=== PATIENT | male | born 1995 | race Caucasian/White ===

== ENCOUNTER 2018-01-08 15:31 | Emergency (ER) | payer OTHER ==
--- NOTE | 2018-01-08 16:29 | EDPHY ---
H & P Stated Complaint: R elbow/forearm/hand lac Source: Patient Exam Limitations: No limitations - Personal History Current Tetanus/Diphtheria Vaccine: Yes Current Tetanus Diphtheria and Acellular Pertussis (TDAP): Yes - Medical/Surgical History Hx Asthma: No Hx Chronic Respiratory Disease: No Hx Diabetes: No Hx Cardiac Disease: No Hx Renal Disease: No Hx Cirrhosis: No Hx Alcoholism: No Hx HIV/AIDS: No Hx Splenectomy or Spleen Trauma: No Other PMH: denies - Social History Smoking Status: Never smoked Time Seen by Provider: 01/08/18 16:27 HPI/ROS: HPI: This is a 22-year-old male who presents with Chief Complaint: R elbow/forearm/hand lac Location: Right elbow, right forearm, right hand Quality: Laceration Duration: 3 hr prior to arrival Signs and Symptoms: + bleeding, no radiation, no numbness, no weakness, no tingling, no incontinence, no decreased range of motion, no swelling, no pain, no fever Timing: Acute Severity: [id number] Context: Patient is right-hand dominant, became angry and punched his hand and right forearm through the glass door. He reports that he sustained several cuts to his right hand and right forearm. He reports that there was bleeding but stopped with direct pressure. He at 1st experience moderate, constant, nonradiating pain. He denies any pain at this time. Reports tetanus is current. Modifying Factors: Direct pressure Comment: ROS: see HPI Constitutional: No fever, no chills, no weight loss Eyes: No blurred vision Respiratory: No shortness of breath, no cough Cardiovascular: No chest pain Gastrointestinal: No nausea, no vomiting no diarrhea Genitourinary: No dysuria Extremities: No myalgias Neurologic: No weakness, no numbness Skin: No rashes Hematologic: No bruising, no bleeding MEDICAL/SURGICAL/SOCIAL HISTORY: Medical history: Generally healthy. Does not take any regular medications. Surgical history: Denies Social history: Never smoked. CONSTITUTIONAL: awake and alert, no obvious distress HEENT: Atraumatic and normocephalic. NECK: supple, no midline tenderness, flexion 45 degrees, extension 45 degrees, right and left lateral flexion 45 degrees. No meningismus. Cardiovascular: Normal S1/S2, regular rate, regular rhythm, without murmur rub or gallop. PULMONARY/CHEST: Symmetrical and nontender. no crepitus. Clear to auscultation bilaterally. Good air movement. No accessory muscle usage. ABDOMEN: Soft, nondistended, nontender, no ecchymosis. PELVIC: no pain with rocking; bilateral hips flexion 125 degrees, extension 30 degrees, with no pain internal rotation and no pain external rotation. BACK: No midline tenderness, no paraspinous spasm, deep tendon reflexes 2/2, no pain with straight leg raise, No foot drop. Achilles reflexes are equal bilaterally. Able to walk on heels and toes without difficulty. EXTREMITIES: 2/2 pulses, strength 5/5, right hand palmar aspect shows superficial, linear laceration. Left forearm shows 2, linear, simple laceration. No active bleeding. Right WRIST: Extension to 70, flexion to 80 , radial deviation to 20 degree, ulnar deviation to 30, no scaphoid tenderness , no tenderness over ulnar styloid, no tenderness over radial styloid. Right ELBOW: Full extension to 180, flexion to 150, no tenderness over medial epicondyle, no tenderness over lateral epicondyle, no effusion. DIP/PIP/MCP flexion/extension intact with good light touch sensation. no deformities, no clubbing, no cyanosis or edema. NEUROLOGICAL: no focal neuro deficits. GCS 15. Light touch sensation intact. SKIN: Warm and dry, no erythema. no rash. Good capillary refill. (Marlene Ibrahim) Constitutional: Initial Vital Signs Temperature (C) 36.5 C 01/08/18 15:34 Heart Rate 57 L 01/08/18 15:34 Respiratory Rate 16 01/08/18 15:34 Blood Pressure 157/83 H 01/08/18 15:34 O2 Sat (%) 99 01/08/18 15:34 O2 Delivery Mode Room Air Allergies/Adverse Reactions: No Known Allergies Allergy (Unverified 01/08/18 15:34) Home Medications: Medication Instructions Recorded NO HOME MEDS 08/13/10 Medical Decision Making Procedures: Procedure: Laceration repair. I was requested by MARGE Ibrahim to perform wound closure I explained the indications, risks and benefits for both laceration repair and anesthetic administration. Verbal consent was obtained from the patient . The laceration on the right forearm and right thenar eminence was anesthetized using 0.5% bupivicaine with epinephrine digital nerve block. After anesthetic administered the patient was observed for a period of time and had no apparent adverse effects. The wound was cleaned, prepped, draped in normal sterile fashion and explored to its base. No foreign body seen, no foreign bodies palpated. There were no deep structures involved. No tendon injury was identified. The wounds were closed with a total of 11 simple interrupted 5 0 Prolene sutures. I do not identify any subcutaneous foreign bodies. There were small piece of glass on the skin that I removed.. The wound repair was complex. The procedure was performed by myself. Patient has been informed that scarring will occur, although efforts have been made to minimize this. I will obtain repeat x-ray as the prior x-ray was obtained prior to wound irrigation and radiopaque foreign bodies were noted. Post irrigation no radiopaque foreign bodies are seen. Procedure: Splint A Velcro thumb spica splint was applied by ER carpet cleaning technician in order to protect the laceration on the thenar eminence. After application of the splint I returned and re-examined the patient. The splint was adequately immobilizing the joint and distal to the splint the patient's circulation and sensation were intact. Patient shows no signs of compartment syndrome. Was given orthopedic precautions. (David Amador) ED Course/Re-evaluation: Right hand x-ray, right forearm x-ray ordered Tetanus is current. Local anesthesia provided with 10 mL of 0.5 % Bupivacaine with epinephrine. 1700: End of shift. Signed over to MARGE Mace pending laceration repair and x- ray results. No signs of neurovascular compromise/tenting of skin/compartment syndrome/ extremities and joints examined above and below area of concern and are neurovascularly intact. This patient was seen under the supervision of my secondary supervising physician. I evaluated care for this patient independently. Discussed this patient with Dr. Bhakta who did not see the patient. (Marlene Ibrahim) Differential Diagnosis: Differential diagnosis includes but is not limited to boxer's fracture, radial fracture, ulnar fracture, laceration, tendon injury, nerve injury. (Marlene Ibrahim) Other Provider: The patient was evaluated and managed by the Physician Fire Sprinkler Apparatus Inspector. My co- signature indicates that I have reviewed this chart and I agree with the findings and plan of care as documented. I am the secondary supervising physician. (Lena hBakta) Departure - Departure Disposition: Home, Routine, Self-Care Clinical Impression: Laceration of left hand, Laceration of left forearm without complication Condition: Good Instructions: Care For Your Stitches (ED), Laceration (ED) Additional Instructions: Keep the dressing dry and in place for 48 hours. After 48 hours, you may remove the dressing; wash the site daily with mild soap and water; then pat dry. Take Tylenol 650 mg every 4 hours and/or Ibuprofen 600 mg every 8 hours with food as needed for pain. Apply ice for 30 minutes at a time; 2-3 times per day for the next 1-2 days. Wound Care Follow-Up: Removal of sutures in [10] days. Suture removal is complimentary in uncomplicated cases. Infection or abnormal findings would require reevaluation by the MD. In that case, you may be billed. Return to the ER immediately if you experience redness, red streaks, have fevers /chills, flu like symptoms, limited range of motion, or any other symptoms that concern you. Referrals: NONE *PRIMARY CARE P,. [Primary Care Provider] - As per Instructions
[2018-01-08 18:33] VITALS: BP 148/80
== END 2018-01-08 18:33 | disposition home or self-care (01) ==
DX: S61.412A Laceration without foreign body of left hand, initial encounter (principal); S51.812A Laceration without foreign body of left forearm, initial encounter; W25.XXXA Contact with sharp glass, initial encounter; Y99.8 Other external cause status; Y93.89 Activity, other specified
CPT/HCPCS: L3807